=== PATIENT | male | born 1935 | race Caucasian/White ===

== ENCOUNTER 2017-03-08 12:22 | Day surgery (SDC) | payer MEDICARE, OTHER ==
[~2017-03-08] VITALS: Ht 182.9 cm; Wt 86.7 kg
[~2017-03-08 12:22] MED LIST: ACET325T26 PO; AMLO10TA2 PO; ASPI-496 PO; ATOR20TA9 PO; CARV12.543 PO; CETI5TAB3 PO; FINA5TAB4 PO; FURO20TA3 PO; LISI-170 PO; POTA10TA31 PO
[2017-03-08 13:06] VITALS: BP 149/76
[2017-03-08 13:08] LABS: HEMATOCRIT 37.4 % (39.2-51.8); HEMOGLOBIN 12.5 g/dL (13.7-18.0); WHITE BLOOD COUNT 9.4 x10^3/uL (3.4-10)
[2017-03-08 13:19] LABS: BLOOD UREA NITROGEN 11 mg/dL (7-18)
[2017-03-08] MEDS ORDERED: SUCCINYLCHOLINE 20 MG/ML, 10ML ONE (13:40)
[2017-03-08] MEDS ORDERED: ROCURONIUM 10 MG/ML ONE (13:40)
[2017-03-08] MEDS ORDERED: PROPOFOL 10 MG/ML, 20ML ONE (13:40)
[2017-03-08] MEDS ORDERED: CIPROFLOXACIN/PMX 400MG/200ML 200 ML ONE (13:53)
[2017-03-08] MEDS ORDERED: ONDANSETRON 2MG/ML, 2ML IVPush PRN (14:00)
[2017-03-08] MEDS ORDERED: ACETAMINOPHEN 325 MG TABLET PO PRN (14:00)
[2017-03-08] MEDS ORDERED: EPHEDRINE 50 MG/ML, 1ML IVPush PRN (14:00)
[2017-03-08] MEDS ORDERED: ALBUTEROL SULFATE 2.5 MG/3 ML NPPB PRN (14:00)
[2017-03-08] MEDS ORDERED: METOPROLOL 1 MG/ML, 5ML IV PRN (14:00)
[2017-03-08] MEDS ORDERED: hydrALAzine 20 MG/ML, 1ML IV PRN (14:00)
[2017-03-08] MEDS ORDERED: LABETALOL 5MG/ML, 20ML IV PRN (14:00)
== END 2017-03-08 15:32 ==
LOC: OUT 12:22
PROVIDERS: ATTEND Internal Medicine Gastroenterology
DX: K85.90 Acute pancreatitis without necrosis or infection, unspecified (principal); K86.2 Cyst of pancreas; I10 Essential (primary) hypertension; I25.10 Atherosclerotic heart disease of native coronary artery without angina pectoris; N40.0 Benign prostatic hyperplasia without lower urinary tract symptoms; Z88.6 Allergy status to analgesic agent; Z91.09 Other allergy status, other than to drugs and biological substances
CPT/HCPCS: 36415; 43239; 43259; 80048; 85025; 93005; J0330; J0744; J2704